=== PATIENT | male | born 1995 | race Caucasian/White ===

== ENCOUNTER 2017-05-05 20:08 | Emergency (ER) | payer BC, OTHER ==
[~2017-05-05] VITALS: Ht 180.3 cm; Wt 93.1 kg
[2017-05-05 20:17] VITALS: TEMP 37; Ht 180.3 cm; Wt 93.1 kg
[2017-05-05] MEDS ORDERED: ACETAMINOPHEN 500 MG TAB PO STA (20:27)
[2017-05-05] MEDS ORDERED: IBUPROFEN 600 MG TAB PO STA (20:27)
--- NOTE | 2017-05-05 20:58 | DIAGNOSTIC IMAGING REPORT ---
R ANKLE MIN 3 VIEWS ROUTINE CLINICAL HISTORY: Right ankle pain status post trauma COMPARISON: None. DISCUSSION: There is irregularity of the dorsal surface of the talus as visualized in the lateral view. This is age-indeterminate. No fractures of the distal tibia or fibula are visualized. The ankle mortise appears intact. IMPRESSION: Age-indeterminate tiny sliver-like avulsion arising from the dorsal surface of the talus Electronically signed by: Zane Arteaga M.D. 05/05/2017 8:57 PM Dictated Date/Time: 05/05/2017 8:57 PM
--- NOTE | 2017-05-05 21:00 | DIAGNOSTIC IMAGING REPORT ---
R FOOT MIN 3 VIEWS ROUTINE CLINICAL HISTORY: Right foot pain status post trauma COMPARISON: None. DISCUSSION: There is a navicular spur. There is an age-indeterminate tiny avulsion arising from the dorsal surface of the talus. There are no dislocations. The bony mineralization appears normal. IMPRESSION: 1. Age-indeterminate tiny avulsion arising from the dorsal surface of the talus 2. Navicular spur Electronically signed by: Zane Arteaga M.D. 05/05/2017 8:59 PM Dictated Date/Time: 05/05/2017 8:58 PM
[2017-05-05] MEDS ORDERED: NORCO 5/325MG HOME PACK PO ONE (21:45)
[2017-05-05 22:06] VITALS: BP 118/72; PULSE 78; O2SAT 98
--- NOTE | 2017-05-05 23:29 | EMERGENCY ROOM VISIT NOTE ---
History First contact with patient: 20:23 Chief Complaint: FOOT PAIN Stated Complaint: ANKLE PAIN History of Present Illness The patient is a 21 year old male who presents to the Emergency Room with complaints of injury to his right foot and ankle that occurred about 45 minutes ago. The patient states that he was outside playing with his dog, when the animal ran underneath his feet, and struck into his right side ankle. The patient had immediate pain and discomfort following this. He does not report pain of the knee or back. No history of previous injury to the ankle. The patient considers himself usually healthy. He has not had anything over-the- counter for his discomfort which she currently rates a 5/10. He is not able to ambulate because of the pain. Review of Systems More than 10 systems were reviewed and otherwise negative with the exception of history of present illness. Past Medical/Surgical History Medical Problems: (1) No significant medical problems Surgical Problems: (1) Status post myringotomy with insertion of tube Family History No pertinent family history Social History Smoking Status: Current Every Day Smoker Alcohol Use: none Marital Status: single Housing Status: lives with family Occupation Status: student Physical Exam Vital Signs Date Time Temp Pulse Resp B/P (MAP) Pulse Ox O2 Delivery O2 Flow Rate FiO2 05/05/17 22:06 78 18 118/72 98 05/05/17 20:17 37.0 123 18 140/67 99 Room Air Physical Exam VITALS: Vitals are noted on the nurse's note and reviewed by myself. Vital signs stable. GENERAL: Well-developed, well-nourished, white male, who is in no acute distress and resting comfortably. Patient is cooperative with the examination. HEAD: Normocephalic atraumatic. HEART: Regular rate and rhythm without murmurs gallops or rubs. LUNGS: Clear to auscultation bilaterally without wheezes, rales or rhonchi. No retractions or accessory muscle use. MUSCULOSKELETAL: Tenderness and edema is appreciated over the anterior and lateral aspect of the right ankle into the superior aspect of the right midfoot. Neurovascular status is intact to the distal toes. No lacerations or gross deformity. The patient is able to dorsiflex and plantarflex. No tenderness of the right knee. NEURO: Patient was alert and oriented to person place and time. Medical Decision & Procedures ER Provider Diagnostic Interpretation: R ANKLE MIN 3 VIEWS ROUTINE CLINICAL HISTORY: Right ankle pain status post trauma COMPARISON: None. DISCUSSION: There is irregularity of the dorsal surface of the talus as visualized in the lateral view. This is age-indeterminate. No fractures of the distal tibia or fibula are visualized. The ankle mortise appears intact. IMPRESSION: Age-indeterminate tiny sliver-like avulsion arising from the dorsal surface of the talus R FOOT MIN 3 VIEWS ROUTINE CLINICAL HISTORY: Right foot pain status post trauma COMPARISON: None. DISCUSSION: There is a navicular spur. There is an age-indeterminate tiny avulsion arising from the dorsal surface of the talus. There are no dislocations. The bony mineralization appears normal. IMPRESSION: 1. Age-indeterminate tiny avulsion arising from the dorsal surface of the talus 2. Navicular spur Medications Administered Medications (Trade) Dose Ordered Sig/Mallory Route Start Time Stop Time Status Last Admin Dose Admin Acetaminophen/ Hydrocodone Bitart ([facility] 5/325mg Home Pack) 1 homepack UD ONCE PO 05/05/17 21:45 05/05/17 21:46 DC 05/05/17 21:45 1 HOMEPACK ED Course Physical exam and history were performed. Nursing notes, EMR, and Medication List were personally reviewed. Patient appears to have suffered injury to his right foot and right ankle. On examination the patient does have pain and swelling. He was given a dose of Vicodin here in the department. X-rays were performed and reviewed by myself and radiology. X-rays appear to show a small avulsion fracture. This would correlate with his discomfort and is the likely cause of his pain. The patient and I had a lengthy discussion regarding this and I stressed the importance of following up with orthopedics. The patient will be placed in an Orthoplast splint and given crutches. He was otherwise invited back to the ER with any new , worsening, or concerning symptoms. The chart was completed utilizing [employer] Speech Voice Recognition Software. Grammatical errors, random word insertions, pronoun errors, and incomplete sentences are an occasional consequence of this system due to software limitations, ambient noise, and hardware issues. Any formal questions or concerns about the content, text, or information contained within the body of this dictation should be directly addressed to the provider for clarification. . Medical Decision Differential diagnosis includes, but is not limited to: Sprain, strain, fracture , dislocation, subluxation, contusion, and others Impression Primary Impression: Avulsion fracture of right talus Departure Information Dispostion Home / Self-Care Condition GOOD Referrals Moe Jimenez D.O. Forms HOME CARE DOCUMENTATION FORM, Work Instructions, Additional Instructions: Patient was seen and evaluated today in the emergency department fo medical care. Return to work at the [employer]. Pleas excuse. IMPORTANT VISIT INFORMATION Patient Instructions My [facility], ED Compartment Syndrome At Risk For, ED RICE Additional Instructions You were seen and evaluated today on an emergency basis only. This is not a substitute for, or an effort to provide, complete comprehensive medical care. It is not possible to recognize and treat all injuries or illnesses in a single emergency department visit. For this reason it is recommended that you followup with [facility] , Dr. Jimenez's office, by telephone in the morning to arrange a follow-up appointment in the next 2 or 3 days. Let them know you are seen in the ER to help make the appointment. For baseline pain relief you may alternate ibuprofen and acetaminophen every 4 hours for pain control. Take 600 mg ibuprofen (Advil) and then 4 hours later take 1000 mg acetaminophen (Tylenol). Do not take more than 3000 mg acetaminophen in a single day. [facility] (hydrocodone/acetaminophen) 5/325 mg every 6 hours as needed for worsening breakthrough pain. Do not drink or drive on [facility] [place]. This medication will likely make you tired. Do not take [facility] and Tylenol at the same time as both contain acetaminophen. [facility] may cause constipation. You may wish to take an [id number] stool softener like Colace if this occurs. Do not get your splint wet. Use your crutches to help with walking. You are welcome to return to the emergency department anytime with new, worsening, or concerning symptoms. Work Instructions Additional Work Instructions: Patient was seen and evaluated today in the emergency department for medical care. Return to work at the [employer] [employer]. Please excuse.
== END 2017-05-05 22:07 | disposition home or self-care (01) ==
LOC: C.EDB 20:09 → C.EDD 22:07
DX: S92.154A Nondisplaced avulsion fracture (chip fracture) of right talus, initial encounter for closed fracture (principal); W54.1XXA Struck by dog, initial encounter; Y93.89 Activity, other specified; F17.210 Nicotine dependence, cigarettes, uncomplicated